=== PATIENT | male | born 1990 | race Caucasian/White ===

== ENCOUNTER 2020-08-20 03:16 | Outpatient (CLI) | payer BC, SELFPAY ==
[2020-08-20 13:47] LABS: Hemoglobin A1C 5.8 % (<5.7)
[2020-08-20 14:10] LABS: Calculated LDL 112 mg/dL (<100); Cholesterol 181 mg/dL (<200); HDL Cholesterol 48 mg/dL (40-60); Triglyceride 109 mg/dL (<150)
[2020-08-20 22:34] LABS: PSA, Screening 0.8 ng/mL (0.0-2.5)
== END 2020-08-20 03:17 | disposition home or self-care (01) ==
LOC: LBO 03:16
PROVIDERS: PCP Nurse Practitioner Family; Visit Provider Nurse Practitioner Family
DX: Z13.220 Encounter for screening for lipoid disorders (principal); Z13.1 Encounter for screening for diabetes mellitus; Z12.5 Encounter for screening for malignant neoplasm of prostate
CPT/HCPCS: 36415; 80061; 84153; 83036